=== PATIENT | female | born 1990 | race Caucasian/White ===

== ENCOUNTER 2019-08-01 16:05 | Emergency (ER) | payer MEDICAID, OTHER ==
[2019-08-01 16:24] VITALS: BP 132/65
== END 2019-08-01 18:10 | disposition left against medical advice (07) ==
LOC: ED 16:05
DX: Z53.21 Procedure and treatment not carried out due to patient leaving prior to being seen by health care provider (principal); Z20.9 Contact with and (suspected) exposure to unspecified communicable disease; Z3A.00 Weeks of gestation of pregnancy not specified
CPT/HCPCS: 99281